=== PATIENT | female | born 2005 | race Hispanic/Latino ===

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

== ENCOUNTER 2025-01-14 22:02 | Emergency (ER) | payer OTHER, SELFPAY ==
[2025-01-14] MEDS ORDERED: Ibuprofen 200 MG TAB ONE (22:26)
[2025-01-14] MEDS ORDERED: Acetaminophen 500 MG TAB ONE (22:26)
== END 2025-01-14 23:47 | disposition home or self-care (01) ==
LOC: ERS 22:02
DX: U07.1 COVID-19 (principal)
CPT/HCPCS: 87081; 87428; 87430; 99283